=== PATIENT | female | born 1965 | race African-American/Black ===

== ENCOUNTER 2020-04-14 14:05 | Emergency (ER) | payer OTHER, MEDICAID ==
[~2020-04-14] VITALS: Ht 175.3 cm; Wt 109.8 kg
[2020-04-14 14:11] VITALS: BP 133/94
--- NOTE | 2020-04-14 14:11 | NUR ---
PT TAKEN TO BED 4.
--- NOTE | 2020-04-14 14:22 | NUR ---
54/F PRESENTS TO ED WITH C/O BRUISE TO LT KNEE/THIGH X TODAY UPON WAKING UP. PT ONLY COMPLAINS OF PAIN PUSHING THE BRUISE. PT STATES SHE WOKE UP THIS AM AND WAS APPLYING LOTION AND NOTICED THE BRUISE. PATIENT DENIES ANY TRAUMA OR INJURY. AMBULATORY WITH STEADY GAIT.
--- NOTE | 2020-04-14 14:25 | NUR ---
Patient being evaluated by Dr. Bryson at bedside.
--- NOTE | 2020-04-14 14:37 | NUR ---
Patient discharged with v/s stable. Written and verbal after care instructions given and explained. Patient verbalized understanding. Ambulatory with steady gait. All questions addressed prior to discharge. Advised to follow up with PMD.
[2020-04-14 14:38] VITALS: BP 133/94
== END 2020-04-14 14:37 | disposition home or self-care (01) ==
LOC: MED 14:05
DX: S80.12XA Contusion of left lower leg, initial encounter (principal); F17.200 Nicotine dependence, unspecified, uncomplicated; I10 Essential (primary) hypertension; Z88.0 Allergy status to penicillin; Z88.1 Allergy status to other antibiotic agents; Z88.6 Allergy status to analgesic agent; X58.XXXA Exposure to other specified factors, initial encounter; Y93.89 Activity, other specified; Y92.89 Other specified places as the place of occurrence of the external cause; Y99.8 Other external cause status
CPT/HCPCS: 99281; 99282